=== PATIENT | female | born 1970 | race Caucasian/White ===

== ENCOUNTER 2020-05-01 07:31 | Outpatient (CLI) | payer OTHER, SELFPAY ==
--- NOTE | ~2020-05-01 | MM_ITS ---
EXAMINATION: MM screening [facility] w [facility]da HISTORY: Screening TECHNIQUE: Craniocaudal and mediolateral oblique 3-D tomosynthesis images were obtained and synthetic 2-D images were generated. CAD analysis was submitted and interpreted. COMPARISON: Comparison to multiple prior studies sequentially, with oldest reviewed study dated 05/02. BREAST PARENCHYMAL COMPOSITION: The breasts are extremely dense, which lowers the sensitivity of mamm ography. FINDINGS: There is no evidence of suspicious mass, calcification, or architectural distortion to sugg est malignancy in either breast. There has been no suspicious interval change. IMPRESSION: 1. No mammographic evidence of malignancy. 2. Recommend routine screening mammography in one year. BI-RADS Category 1: Negative Reviewed, dictated and finalized at location A.
== END 2020-05-01 07:32 | disposition home or self-care (01) ==
LOC: ANHIMG 07:34
PROVIDERS: Visit Provider Obstetrics & Gynecology
DX: Z12.31 Encounter for screening mammogram for malignant neoplasm of breast (principal)
CPT/HCPCS: 77063; 77067

== ENCOUNTER 2021-05-04 01:41 | Day surgery (SDC) | payer OTHER, SELFPAY ==
[2021-04-24 09:55] VITALS: BMI 21.8
--- NOTE | 2021-05-04 07:14 | WPDANESEPPF ---
Anes - Initial Pre Proc Eval Procedure: Operation Date: 05/04/21 08:00 Proposed Procedures p Screening Colonoscopy - Momo Jennings MD Date/Time: 05/04/21 07:14 Surgeon: Momo Jennings MD Pre Op Diagnosis: family hx of colon polyps, neoplasm screening Patient Data Age: 51 Gender: F Height: 1.68 m Weight: 61.3 kg Allergies Allergy/AdvReac Type Severity Reaction Status Date / Time Sulfa (Sulfonamide Allergy Unknown Vomiting Verified 05/04/21 07:06 Antibiotics) Tetanus Vaccines and Toxoid Allergy Swelling Verified 05/04/21 07:06 venom-honey bee Allergy Swelling Verified 05/04/21 07:06 Home Medications Medication Instructions Recorded Confirmed Type Daily Multivitamin 1 tab-cap PO DAILY 10/19/19 05/04/21 History sumatriptan succinate 100 mg PO PRN PRN 04/24/21 05/04/21 History Patient hx anesthesia problems: none Family hx anesthesia problems: none PMFSH Past Medical History 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 Surgical History Surgical History S/P wisdom tooth extraction Social History Social History Smoking status: Never smoker Substance use: never Substance use type: does not use Living arrangements: with family Additional occupation/education comments: teacher Gender identity (if verbalized by the patient): Female Spiritual care concerns: No Anes - Eval Final PreProcedure Day of Procedure 05/04/21 07:14 Patient weight: normal Heart: regular rate and rhythm Lungs: clear to auscultation Airway: Mallampati scale class 1 Neurological: alert and oriented Last oral intake: >/= 8 hours ASA classification: I Emergent: no Anesthetic plan: proceed Anesthesia type and monitoring: general GIVS and standard monitoring Informed Consent: The patient's anesthetic plan and its attendant risks and benefits were discussed with the patient/family/POA. Questions were solicited and answers provided to the satisfaction of the patient/family/POA.
[2021-05-04 07:20] VITALS: BP 129/93; PULSE 78; RESP 20; TEMP 36.4; O2SAT 97; BMI 22.0
[2021-05-04] MEDS: LACTATED RINGERS 1,000 ML 30 ML IV CONT (07:25)
--- NOTE | 2021-05-04 07:49 | SUR.PREOP ---
Pt c/o pain and burning at IV site after insertion and continuing several minutes after. Positive blood return and IV fluids dripping quickly when line is open. No redness or swelling. No c/o discomfort with NS flush. Offered to place IV at different site. Pt states not needed at this time. Will continue to monitor.
--- NOTE | 2021-05-04 08:00 | WPDGICN ---
Assessment and Plan Assessment and plan (1) Encounter for screening colonoscopy: Code(s): Z12.11 - Encounter for screening for malignant neoplasm of colon Status: Acute (2) Family history of colonic polyps: Code(s): Z83.71 - Family history of colonic polyps Status: Acute Assessment and Plan: Patient has a family history of colon polyps in her sister. sister had colon polyps at age 36. Plan is for patient to have colonoscopy now and at 5 year intervals. GI Consult Note Consult date/time: 05/04/21 08:00 HPI: Deanna Rodriguez is a 51 year old female Presents for screening colonoscopy. Patient states that her current weight appetite bowel movements are normal. She denies abdominal pain. She has had no bleeding. Family history is significant that her sister had colon polyps at age 36. Patient herself underwent colonoscopy 6 years ago that was unremarkable. She presents today for follow-up examination. 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 Surgical History Surgical History S/P wisdom tooth extraction Social History Social History Smoking status: Never smoker Substance use: never Substance use type: does not use Living arrangements: with family Additional occupation/education comments: teacher Gender identity (if verbalized by the patient): Female Spiritual care concerns: No Meds Home Medications and Allergies Home Medications Medication Instructions Recorded Confirmed Type Daily Multivitamin 1 tab-cap PO DAILY 10/19/19 05/04/21 History sumatriptan succinate 100 mg PO PRN PRN 04/24/21 05/04/21 History Allergies Allergy/AdvReac Type Severity Reaction Status Date / Time Sulfa (Sulfonamide Allergy Unknown Vomiting Verified 05/04/21 07:06 Antibiotics) Tetanus Vaccines and Toxoid Allergy Swelling Verified 05/04/21 07:06 venom-honey bee Allergy Swelling Verified 05/04/21 07:06 Vital Signs Vital Signs - 24 hr 05/04/21 07:20 Temperature 97.5 F L Pulse Rate 78 Respiratory Rate 20 Blood Pressure 129/93 H Pulse Oximetry 97 Exam Narrative: Exam Narrative: Physical exam reveals patient to be alert. Vital signs stable. HEENT exam is unremarkable. Patient is anicteric. Lungs are clear to auscultation and percussion. Heart is without murmur or extra sounds. Abdominal exam bowel sounds are present soft nontender with no organomegaly. Digital external rectal exam is normal.
[2021-05-04 08:24] VITALS: BP 93/53; PULSE 75; RESP 17; O2SAT 100
[2021-05-04 08:34] VITALS: BP 109/77; PULSE 75; RESP 20; O2SAT 100
[2021-05-04 08:44] VITALS: BP 123/81; PULSE 72; RESP 24; O2SAT 100
== END 2021-05-04 08:55 | disposition home or self-care (01) ==
PROVIDERS: Visit Provider Internal Medicine Gastroenterology
PROC: 0DJD8ZZ Inspection of Lower Intestinal Tract, Via Natural or Artificial Opening Endoscopic (ICD-10-PCS; CPT 45378; principal; 2021-05-04 08:00)
DX: Z12.11 Encounter for screening for malignant neoplasm of colon (principal); K64.8 Other hemorrhoids; Z83.71 Family history of colonic polyps; R76.11 Nonspecific reaction to tuberculin skin test without active tuberculosis
CPT/HCPCS: 45378; J2704; J7120

== ENCOUNTER 2021-05-05 07:17 | Outpatient (CLI) | payer OTHER, SELFPAY ==
--- NOTE | ~2021-05-05 | MM_ITS ---
EXAMINATION: MM screening [facility] BI w elda HISTORY: Screening mammogram TECHNIQUE: Craniocaudal and mediolateral oblique 3-D tomosynthesis images were obtained and synthetic 2-D images were generated. Bilateral rotated lateral CC views. CAD analysis was submitted and interp reted. COMPARISON: 05/01/2020, 12/29/2018, 10/15/2017 bilateral digital screening mammogram examinations BREAST PARENCHYMAL COMPOSITION: The breasts are extremely dense, which lowers the sensitivity of mamm ography. FINDINGS: There is no evidence of suspicious mass, calcification, or architectural distortion to sugg est malignancy in either breast. There has been no suspicious interval change. IMPRESSION: 1. No mammographic evidence of malignancy. 2. Recommend routine screening mammography in one year. BI-RADS Category 1: Negative Reviewed, dictated and finalized at location A.
== END 2021-05-05 07:18 | disposition home or self-care (01) ==
PROVIDERS: Visit Provider Obstetrics & Gynecology
DX: Z12.31 Encounter for screening mammogram for malignant neoplasm of breast (principal)
CPT/HCPCS: 77063; 77067

== ENCOUNTER 2022-07-06 16:21 | Outpatient (CLI) | payer OTHER, SELFPAY ==
--- NOTE | ~2022-07-06 | MM_ITS ---
EXAMINATION: MM screening [facility] BI w elda HISTORY: Screening mammogram TECHNIQUE: Craniocaudal and mediolateral oblique 3-D tomosynthesis images were obtained and synthetic 2-D images were generated. CAD analysis was submitted and interpreted. COMPARISON: 05/05/2021, 05/01/2020, 12/29/2018 bilateral screening mammogram examinations BREAST PARENCHYMAL COMPOSITION: The breasts are extremely dense, which lowers the sensitivity of mamm ography. FINDINGS: There is no evidence of suspicious mass, calcification, or architectural distortion to sugg est malignancy in either breast. There has been no suspicious interval change. IMPRESSION: 1. No mammographic evidence of malignancy. 2. Recommend routine screening mammography in one year. BI-RADS Category 1: Negative Reviewed, dictated and finalized at location A.
== END 2022-07-06 16:22 | disposition home or self-care (01) ==
PROVIDERS: Visit Provider Obstetrics & Gynecology
DX: Z12.31 Encounter for screening mammogram for malignant neoplasm of breast (principal)
CPT/HCPCS: 77063; 77067

== ENCOUNTER 2023-06-30 19:10 | Emergency (ER) | payer OTHER, SELFPAY ==
--- NOTE | 2023-06-30 19:13 | ED.FEMALEGU ---
HPI - Female Genitourinary General Chief complaint: Urogenital-Female Stated complaint: Uti symptoms Time Seen by Provider: 06/30/23 19:13 Source: patient, RN notes reviewed and old records reviewed Mode of arrival: ambulatory Limitations: no limitations History of Present Illness HPI Narrative: 53-year-old female presents to the [facility] with complaints of urinary symptoms. Patient reports frequency urgency and burning Symptoms started this afternoon. Denies fevers, chest pain, abdominal pain. No CVA tenderness. No nausea or vomiting. Related Data Home Medications Medication Instructions Recorded Confirmed Daily Multivitamin 1 tab-cap PO DAILY 10/19/19 06/30/23 sumatriptan succinate 100 mg tablet 100 mg PO PRN PRN Headache 04/24/21 06/30/23 Allergies Allergy/AdvReac Type Severity Reaction Status Date / Time Sulfa (Sulfonamide Allergy Unknown Vomiting Verified 06/30/23 19:17 Antibiotics) Tetanus Vaccines and Toxoid Allergy Swelling Verified 06/30/23 19:17 venom-honey bee Allergy Swelling Verified 06/30/23 19:17 Review of Systems Review of Systems: All systems reviewed & are unremarkable except as noted in HPI and below Constitutional: Constitutional: Reports no additional constitutional complaints Eyes: Eyes: Reports no additional eye complaints ENT: Reports system reviewed and no additional complaints, except as documented Cardiovascular: Cardiovascular: Reports no additional cardiovascular complaints, Denies chest pain and Denies dyspnea Respiratory: Respiratory: Reports no additional respiratory complaints, Denies chest congestion, Denies cough and Denies dyspnea Gastrointestinal: Gastrointestinal: Reports no additional gastrointestinal complaints, Denies abdominal pain, Denies nausea and Denies vomiting Genitourinary: Genitourinary: Reports as per HPI Musculoskeletal: Musculoskeletal: Reports no additional musculoskeletal complaints Integumentary/Breasts: Skin/Breast: Reports system reviewed and no additional complaints, except as docu Neurologic: Reports system reviewed and no additional complaints, except as documented Psychiatric: Psychiatric: Reports no additional psychiatric complaints Allergic/Immunologic: Allergic/Immunologic: Reports no additional allergic/immunologic complaints PMFSH Past Medical History 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 There is no relevant family history pertinent to the patient complaint. Exam Const: General: cooperative, healthy appearing, comfortable, no acute distress, well developed, alert and well nourished Nutritional Appearance: well nourished Orientation/consciousness: patient oriented x3 Limitations: no limitations HENMT: Head: normal to inspection Ears: hearing grossly normal bilaterally and external ears normal Face/Nose/Sinus: Normal external nose present, Normal nares present, Normal nasal mucous membranes and turbinates present, normal facial exam and face symmetric Face and sinus: normal facial exam and face symmetric Eyes: General: appearance normal, both eyes and all related structures Alignment and Position: alignment normal Periorbital: periorbital findings normal Pupils: Equal, round and reactive pupils present EOM: EOMs intact bilaterally Neck: Neck: normal visual inspection, full ROM, no ly
[2023-06-30 19:15] VITALS: BP 155/82; PULSE 95; RESP 16; TEMP 36.8; O2SAT 100
== END 2023-06-30 19:53 | disposition home or self-care (01) ==
PROVIDERS: Emergency Provider Nurse Practitioner
DX: N30.01 Acute cystitis with hematuria (principal)
CPT/HCPCS: 81003; 87077; 87086; 87088; 87186; 99213; G0463

== ENCOUNTER 2023-07-09 09:32 | Outpatient (CLI) | payer OTHER, SELFPAY ==
--- NOTE | ~2023-07-09 | MM_ITS ---
EXAMINATION: MM screening [facility] BI w elda HISTORY: Screening mammogram TECHNIQUE: Craniocaudal and mediolateral oblique 3-D tomosynthesis images were obtained and synthetic 2-D images were generated. CAD analysis was submitted and interpreted. COMPARISON: 07/06/2022, 05/05/2021 BREAST PARENCHYMAL COMPOSITION: The breasts are extremely dense, which lowers the sensitivity of mamm ography. FINDINGS: No suspicious mass, calcification, or architectural distortion are identified in either roque ast to suggest malignancy. There has been no suspicious interval change. IMPRESSION: 1. No mammographic evidence of malignancy. 2. Recommend routine screening mammography in one year. BI-RADS Category 1: Negative Reviewed, dictated and finalized at location A.
== END 2023-07-09 09:33 | disposition home or self-care (01) ==
LOC: ANHIMG 09:37
PROVIDERS: Visit Provider Obstetrics & Gynecology
DX: Z12.31 Encounter for screening mammogram for malignant neoplasm of breast (principal)
CPT/HCPCS: 77063; 77067

== ENCOUNTER 2024-07-19 16:36 | Outpatient (CLI) | payer OTHER, SELFPAY ==
--- NOTE | ~2024-07-19 | MM_ITS ---
EXAMINATION: MM screening [facility] BI w elda HISTORY: Screening TECHNIQUE: Craniocaudal and mediolateral oblique 3-D tomosynthesis images were obtained and synthetic 2-D images were generated. CAD analysis was submitted and interpreted. COMPARISON: Examination is compared with multiple prior studies, performed most recently on 07/09/2023 and dating back to 05/05/2021 BREAST PARENCHYMAL COMPOSITION: The breasts are extremely dense, which lowers the sensitivity of mamm ography. FINDINGS: Punctate calcifications are detected bilaterally, stable and benign in appearance. Stable parenchymal pattern without suspicious microcalcifications, architectural distortion, discrete masses or significant asymmetry. IMPRESSION: 1. No mammographic evidence of malignancy. 2. Recommend routine screening mammography in one year. BI-RADS Category 2: Benign finding(s). Reviewed, dictated and finalized at location A.
== END 2024-07-19 16:37 | disposition home or self-care (01) ==
LOC: ANHIMG 16:39
PROVIDERS: Visit Provider Obstetrics & Gynecology
DX: Z12.31 Encounter for screening mammogram for malignant neoplasm of breast (principal)
CPT/HCPCS: 77063; 77067